=== PATIENT | female | born 1975 | race Caucasian/White ===

== ENCOUNTER 2023-10-05 09:06 | Outpatient (OUT) | payer BC, SELFPAY ==
--- NOTE | 2023-10-05 09:11 | US_ITS ---
The [address] [address] Patient Name: ARACELIS HANDY MRN: [id number] date: 1975 Sex: F Assigned Patient Location: US Current Patient Location: Accession/Order Number: [id number] Exam Date: 10/05/2023 09:15 Report Date: 10/05/2023 09:43 At the request of: SARAH CRANE Procedure: US extremity nonvascular RT EXAM: US extremity nonvascular RT HISTORY: Localized Swelling Mass Of Upper Limb R22.31 COMPARISON: None. TECHNIQUE: Grayscale ultrasound FINDINGS: Ultrasound in the right axilla in the region of the patient's area of concern, normal skin, subcutaneous fat and muscles observed. No ultrasound abnormality. The axilla are bilaterally symmetric US/US extremity nonvascular RT IMPRESSION: No ultrasound abnormality Electronically authenticated by: DANN ARAUJO Date: 10/05/2023 09:43
== END 2023-10-05 09:07 | disposition home or self-care (01) ==
LOC: US 09:06
PROVIDERS: PCP Family Medicine; Visit Provider Family Medicine
DX: R22.31 Localized swelling, mass and lump, right upper limb (principal)
CPT/HCPCS: 76882

== ENCOUNTER 2023-12-30 15:01 | Emergency (ER) | payer BC, SELFPAY ==
[2023-12-30 15:06] VITALS: BP 162/91; PULSE 80; TEMP 37.2; O2SAT 98; BMI 25.8
--- NOTE | 2023-12-30 15:11 | CT_ITS ---
The [address] [address] Patient Name: ARACELIS HANDY MRN: [id number] date: 1975 Sex: F Assigned Patient Location: ER Current Patient Location: ER Accession/Order Number: [id number] Exam Date: 12/30/2023 15:28 Report Date: 12/30/2023 16:04 At the request of: EL GERARDO Procedure: CT head/brain wo con EXAM: CT head/brain wo con HISTORY: Dizziness, headache and left ear pressure. TECHNIQUE: Axial CT scans through the head were obtained without IV contrast administration. Dose reduction techniques were achieved by using: automated exposure control and/or adjustment of mA and /or kV according to patient size and/or the use of an iterative reconstruction technique. COMPARISON: None. FINDINGS: The cerebral hemispheres have normal white and pendleton matter and corticomedullary differentiation. To the limit of CT, the posterior fossa appears unremarkable. The ventricular system and cortical sulci are normal for the patient's age. No area of abnormal mass-effect or edema or intracranial hemorrhage. The visualized orbits show no abnormal mass. The visualized paranasal sinuses show no air-fluid level. Mastoid air cells are clear. CT/CT head/brain wo con IMPRESSION: No acute intracranial process. Electronically authenticated by: YOLIS EDMONDSON Date: 12/30/2023 16:04
--- NOTE | 2023-12-30 15:17 | CT_ITS ---
[address] [address] Patient Name: ARACELIS HANDY MRN: [id number] date: 1975 Sex: F Assigned Patient Location: ER Current Patient Location: Accession/Order Number: [id number] Exam Date: 12/30/2023 15:28 Report Date: 12/30/2023 16:15 At the request of: EL GERARDO Procedure: CT int auditory canals w/o con EXAM: CT int auditory canals w/o con HISTORY: Left ear pain, dizziness and headache. COMPARISON: None. TECHNIQUE: Axial CT scans of the temporal bones were obtained without contrast. MPR images were obtained. Dose reduction techniques were achieved by using: automated exposure control and/or adjustment of mA and /or kV according to patient size and/or use of iterative reconstruction technique. FINDINGS: External auditory canals, middle ear cavities and mastoids are clear bilaterally. The ossicles and otic capsules appear normal bilaterally. The visualized intracranial contents appear normal. CT/CT int auditory canals w/o con IMPRESSION: Normal CT of the temporal bones. Electronically authenticated by: YOLIS EDMONDSON Date: 12/30/2023 16:15
--- OUTSIDE RECORDS SUMMARY | 2023-12-30 15:18 | XMS_ITS | CCD ---
Author Organization [facility] Informat ion Partnership [facility] Care Team Providers Care Accounting Machine Servicer Name Role Phone MEME CARVALHO Attending Unavailable PROVIDER, UNKNOWN Admitting Unavailable PATIENT, SELF Referring Unavailable Janett Cruz Unavailable Unavailable Primary Care Provider Unavailabl e Unavailable Primary Care Provider UnavailSARAH Contreras Primary Care Physician Mark EL Attending Unavailable MYESHA DAVIS Admitting Unavailable CRANE, DR SARAH Draper Primary Care Unavailable MYESHA DAVIS Attending Unavailable SUSAN, MYESHA Consulting Unavailable IAN MANZANARES Consulting Unavailable PRADEEP, DR MARCO Weaver Admitting Unavailable CRANE, DR SARAH Draper Primary Care Unavailable PRADEEP, DR MARCO Weaver Attending Unavailable PRADEEP, DR MARCO Weaver Consulting Unavailable JOSÉ ANTONIO BATEMAN Consulting Unavailable CRANE, DR SARAH Draper Primary Care Unavailable VAUGHN ., DANAE Admitting Unavailable VAUGHN ., DANAE Attending Unavailable VAUGHN ., DANAE Consulting Unavailable CLEMENCIA FONSECA Consulting Unavailable ELOISA WILLETT Consulting Unavailable CRANE, DR SARAH Draper Consulting Unavailable CRANE, DR SARAH Draper Primary Care Unavailable CRANE, DR SARAH Draper Admitting Unavailable CRANE, DR SARAH Draper Attending Unavailable ZIEBER, DR YOAN Weaver Consulting Unavailable CRANE, DR SARAH Draper Consulting Unavailable CRANE, DR SARAH Draper Primary Care Unavailable CRANE, DR SARAH Draper Admitting Unavailable CRANE, DR SARAH Draper Attending Unavailable CRANE, DR SARAH Draper Primary Care Unavailable CRANE, DR SRAAH Draper Admitting Unavailable CRANE, DR SARAH Draper Attending Unavailable CRANE, DR SARAH Draper Primary Care Unavailable ZIEBER, DR YOAN Weaver Consulting Unavailable PAY ., DR KLEIN Admitting Unavailable PAY ., DR KLEIN Attending Unavailable PAY ., DR KLEIN Consulting Unavailable COOK, Scott P Attending Unavailable Scott PERALTA Attending Unavailable ABIGAIL HOLLIS Attending Unavailable Allergies Allergy Classification Reported Allergen(s) Allergy Type Date of Onset Reaction(s) Facility (4 sources) Acetaminophen / HYDROcodone; Translations: [HYDROCODONE-ACETA MINOPHEN] Drug Allergy 4 Itching [facility] Repository (2 sources) Acetaminophen / HYDROcodone; Translations: [Vicodin] Drug Allergy 3 hives [facility] Repository (1 source) Acetaminophen Drug Allergy 4 [facility] (1 source) HYDROcodone Drug Allergy 4 [facility] Medications Current Medications Medication Drug Class(es) Dates Sig (Normalized) Sig (Original) azelastine hydrochloride 0.206 mg/actuat metered dose nasal spray (1 source) Histamine-1 Receptor Antagonist Start: 12-01-2023 Azelastine (Astepro Allergy) 205.5 mcg (0.15 %) spray,non-aerosol Active INTRANASAL December 01, 2023 12:00am brompheniramine maleate 0.4 mg/ml / dextromethorphan hydrobromide 2 mg/ml / pseudoephedrine hydrochloride 6 mg/ml oral solution (1 source) alpha-Adrenergic Agonist, Uncompetitive N-puxeyv-K-aspartat e Receptor Antagonist, Sigma-1 Agonist Start: 08-19-2021 take 10 mL by mouth every six hours Pseudoeph-Bromphen -DM 30-2-10 MG/5ML 10 mL Orally every 6 hours for 5 days Jul, Active 24 hr buPROPion hydrochloride 300 mg extended release oral tablet (3 sources) Aminoketone Start: 09-21-2015 take 1 tablet by mouth once daily buPROPion (WELLBUTRIN XL) 300 MG XL tablet Take 300 mg by mouth daily. 1 09/21/2015 Active DULoxetine 30 mg delayed release oral capsule (1 source) Serotonin and Norepinephrine Reuptake Inhibitor Start: 12-01-2023 Duloxetine Active MG PO December 01, 2023 12:00am famotidine 40 mg oral tablet (1 source) Histamine-2 Receptor Antagonist Start: 12-01-2023 take 40 mg by mouth once daily Famotidine Active 40 MG PO Daily December 01, 2023 12:00am fluticasone propionate 0.05 mg/actuat metered dose nasal spray (1 source) Corticosteroid Start: 08-19-2021 take 2 spray(s) nasal route once daily Flonase Allergy Relief 50 MCG/ACT 2 spray in each nostril Nasally Once a day for 14 day(s) Jul, Active ibuprofen 800 mg oral tablet (3 sources) Nonsteroidal Anti-inflammatory Drug Start: 10-24-2015 take 1 tablet by mouth every eight hours as needed for pain ibuprofen (MOTRIN) 800 MG tablet Take 1 Tablet by mouth every 8 hours as needed for Pain. 30 Tablet 3 10/24/2015 Active levothyroxine sodium 0.137 mg oral tablet (7 sources) l-Thyroxine Start: 12-01-2023 take 137 ug by mouth once daily Levothyroxine Active 137 MCG PO Daily December 01, 2023 12:00am Start: 08-25-2022 levothyroxine 137 mcg (0.137 mg) Tab 137 mcg = 1 tab(s), Daily Start Date: 08/25/22 Status: Ordered Start: 10-16-2015 levothyroxine (SYNTHROID, LEVOTHROID) 137 MCG tablet Levothyroxine So dium 137 MCG Oral for 30 Active methylPREDNISolone 4 mg oral tablet (1 source) Corticosteroid Start: 12-01-2023 take 1 tablet by mouth once Methylprednisolone (Medrol (Samson)) 4 mg tablets,dose pack Active 0 PO per package directions December 01, 2023 12:00am PO PER PKG DIR for 6 days montelukast 10 mg oral tablet (1 source) Leukotriene Receptor Antagonist Start: 12-01-2023 take 10 mg by mouth once daily Montelukast Active 10 MG PO Daily December 01, 2023 12:00am ondansetron 8 mg oral tablet (1 source) Serotonin-3 Receptor Antagonist Start: 12-01-2023 take 8 mg by mouth once daily Ondansetron Hcl Active 8 MG PO Daily December 01, 2023 12:00am phentermine hydrochloride 37.5 mg oral capsule (3 sources) Sympathomimetic Amine Anorectic Phentermine HCl 37.5 MG CAPS Take by mouth. 0 Active Semaglutide (Weight Loss) (1 source) Start: 12-01-2023 Semaglutide (Weight Loss) (Wegovy) 2.4 mg/0.75 mL pen injector Active MG SUBCUT December 01, 2023 12:00am topiramate 50 mg oral tablet (1 source) Start: 12-01-2023 take 50 mg by mouth once daily Topiramate Active 50 MG PO Daily December 01, 2023 12:00am Problems Active Problems Problem Classification Problem Date Documented Da te Episodic/Chronic Abdominal pain (7 sources) Pelvic and perineal pain; Translations: [Unspecified abdominal pain] Onset: 05-27-2022 Episodic Calculus of urinary tract (5 sources) Kidney stone; Translations: [Calculus of kidney] Onset: 05-29-2022 Episodic Genitourinary symptoms and ill-defined conditions (1 source) Retention of urine, unspecified; Translations: [RETENTION OF URINE UNSPECIFIED] Onset: 07-15-2022 Episodic Menopausal disorders (1 source) Hormone replacement therapy; Translations: [HORMONE REPLACEMENT THERAPY] Onset: 07-22-2022 Episodic Other aftercare (1 source) Other prison (current) drug therapy; Translations: [OTH PUBLIC BATH ATTENDANT CURRENT DRUG THERAPY] Onset: 07-22-2022 Episodic Other diseases of kidney and ureters (1 source) Hydronephrosis with renal and ureteral calculous obstruction; Translations: [HYDRONPHROS RENL AND URETRL CALCUL OBST] Onset: 07-15-2022 Episodic Other gastrointestinal disorders (1 source) Constipation, unspecified; Translations: [CONSTIPATION UNSPECIFIED] Onset: 07-22-2022 Episodic Residual codes; unclassified (1 source) Acquired absence of both cervix and uterus; Translations: [ACQUIRED ABSENCE BOTH CERVIX AND UTERUS] Onset: 07-15-2022 Episodic Substance-related disorders (1 source) Nicotine dependence, cigarettes, uncomplicated; Translations: [NICOTINE DEPEND CIGARETTES UNCOMP] Onset: 07-15-2022 Chronic Thyroid disorders (3 sources) Hypothyroidism; Translations: [Hypothyroidism, unspecified] Onset: 07-15-2022 08-25-2022 Chronic Unclassified (3 sources) LOW BACK PAIN, UNSPECIFIED; Translations: [LOW BACK PAIN, UNSPECIFIED] Onset: 07-22-2022 Past or Other Problems Problem Classification Problem Date Documented Date Episodic/Chronic Diabetes mellitus without complication (4 sources) Hyperglycemia, unspecified; Translations: [HYPERGLYCEMIA UNSPECIFIED] Onset: 12-17-2021 Episodic Disorders of teeth and jaw (3 sources) Arthralgia of temporomandibular joint; Translations: [Arthralgia of temporomandibular joint, unspecified side] Onset: 09-26-2013 09-26-2013 Episodic E Codes: Fall (1 source) Fall on same level from slipping, tripping and stumbling without subsequent striking against object, initial encounter; Translations: [FALL SAME LVL SLIP NO STRK OBJ INIT] Onset: 04-23-2022 Episodic Headache; including migraine (1 source) Headache; Translations: [Headache] Episodic Headache; including migraine (1 source) Headache; including migraine Onset: 08-19-2021 Resolved: 08-19-2021 Mycoses (1 source) Onychomycosis; Translations: [Tinea unguium] Episodic Other connective tissue disease (3 sources) Myofascial pain syndrome; Translations: [Myalgia, other site] Onset: 03-16-2014 03-16-2014 Episodic Other ear and sense organ disorders (3 sources) Pain of ear structure; Translations: [Otalgia, unspecified ear] Onset: 09-22-2013 09-22-2013 Episodic Other lower respiratory disease (3 sources) Pleurodynia; Translations: [PLEURODYNIA] Onset: 04-21-2022 Episodic Other screening for suspected conditions (not mental disorders or infectious disease) (4 sources) Other abnormal and inconclusive findings on diagnostic imaging of breast; Translations: [OTH ABN INCONCL FIND DX IMAG BREAST] Onset: 09-06-2021 Episodic Other upper respiratory infections (1 source) Acute sinusitis, unspecified Onset: 08-19-2021 Resolved: 08-19-2021 Episodic Rehabilitation care; fitting of prostheses; and adjustment of devices (3 sources) Patient encounter status; Translations: [Other physical therapy] Onset: 09-26-2013 09-26-2013 Episodic Superficial injury; contusion (2 sources) Contusion of left front wall of thorax, initial encounter; Translations: [Contusion of left hip, initial encounter] Onset: 04-23-2022 Episodic Unclassified (1 source) LOW BACK PAIN, UNSPECIFIED; Translations: [LOW BACK PAIN, UNSPECIFIED] Onset: 07-18-2022 Viral infection (1 source) Other viral agents as the cause of diseases classified elsewhere Onset: 08-19-2021 Resolved: 08-19-2021 Episodic Results Test Name Value Interpretation Reference Range Facility ED Note-Physicianon 09-09-19 ED Note-Physician [id number]#1. 00CD:127 Normal [facility] ED Note-Physician [id number] 0CD:127 Normal [facility] ED Note-Physician [id number]#1. 00CD:127 [facility] RAD - CT Reporton 09-08-2022 RAD - CT Report [id number]#1. 00CD:127 [facility] RAD - CT Report [id number]#1. 00CD:127 Normal [facility] RAD - MISCon 09-08-2022 RAD - MISC [id number]#1. 00CD:127 Normal [facility] RAD - MISCon 09-01-2022 RAD - MISC [id number]#1. 00CD:127 Normal [facility] RAD - Ultrasound Reporton RAD - Ultrasound Report [id number]#1. 00CD:127 Normal [facility] Formson 08-27-2022 Forms [id number]#1. 00CD:127 [facility] Formson 08-26-2022 Forms [id number]#1. 00CD:127 Normal [facility] Patient Educationon 08-26-19 Patient Education Urology Kidney Stones Kidney stones are rock-like masses that form inside of the kidneys. Kidneys are organs that make pee (urine). A kidney stone may move into other parts of the urinary tract, including: ? The tubes that connect the kidneys to the bladder (ureters). ? The bladder. ? The tube that carries urine out of the body (urethra). Kidney stones can cause very bad pain and can block the flow of pee. The stone usually leaves your body (passes) through your pee. You may need to have a doctor take out the stone. What are the causes? Kidney stones may be caused by: ? A condition in which certain glands make too much parathyroid hormone (primary hyperparathyroidism). ? A buildup of a type of crystals in the bladder made of a chemical called uric acid. The body makes uric acid when you eat certain foods. ? Narrowing (stricture) of one or both of the ureters. ? A kidney blockage that you were born with. ? Past surgery on the kidney or the ureters, such as gastric bypass surgery. What increases the risk? You are more likely to develop this condition if: ? You have had a kidney stone in the past. ? You have a family history of kidney stones. ? You do not drink enough water. ? You eat a diet that is high in protein, salt (sodium), or sugar. ? You are overweight or very overweight (obese). What are the signs or symptoms? Symptoms of a kidney stone may include: ? Pain in the side of the belly, right below the ribs (flank pain). Pain usually spreads (radiates) to the groin. ? Needing to pee often or right away (urgently). ? Pain when going pee (urinating). ? Blood in your pee (hematuria). ? Feeling like you may vomit (nauseous). ? Vomiting. ? Fever and chills. How is this treated? Treatment depends on the size, location, and makeup of the kidney stones. The stones will often pass out of the body through peeing. You may need to: ? Drink more fluid to help pass the stone. In some cases, you may be given fluids through an IV tube put into one of your veins at the hospital. ? Take medicine for pain. ? Make changes in your diet to help keep kidney stones from coming back. Sometimes, medical procedures are needed to remove a kidney stone. This may involve: ? A procedure to break up kidney stones using a beam of light (laser) or shock waves. ? Surgery to remove the kidney stones. Follow these instructions at home: Medicines ? Take qmlc-gut-rkoerpi and prescription medicines only as told by your doctor. ? Ask your doctor if the medicine prescribed to you requires you to avoid driving or using heavy machinery. Eating and drinking ? Drink enough fluid to keep your pee pale yellow. You may be told to drink at least 8?10 glasses of water each day. This will help you pass the stone. ? If told by your doctor, change your diet. This may include: ? Limiting how much salt you eat. ? Eating more fruits and vegetables. ? Limiting how much meat, poultry, fish, and eggs you eat. ? Follow instructions from your doctor about eating or drinking restrictions. General instructions ? Collect pee samples as told by your doctor. You may need to collect a pee sample: ? 24 hours after a stone comes out. ? 8?12 weeks after a stone comes out, and every 6?12 months after that. ? Strain your pee every time you pee (urinate), for as long as told. Use the strainer that your doctor recommends. ? Do not throw out the stone. Keep it so that it can be tested by your doctor. ? Keep all follow-up visits as told by your doctor. This is important. You may need follow-up tests. How is this prevented? To prevent another kidney stone: ? Drink enough fluid to keep your pee pale yellow. This is the best way to prevent kidney stones. ? Eat healthy foods. ? Avoid certain foods as told by your doctor. You may be told to eat less protein. ? Stay at a healthy weight. Where to find more information ? National Kidney Foundation (NKF): www.kidney.org ? [employer] (UCF): www.urologyhealth.org Contact a doctor if: ? You have pain that gets worse or does not get better with medicine. Get help right away if: ? You have a fever or chills. ? You get very bad pain. ? You get new pain in your belly (abdomen). ? You pass out (faint). ? You cannot pee. Summary ? Kidney stones are rock-like masses that form inside of the kidneys. ? Kidney stones can cause very bad pain and can block the flow of pee. ? The stones will often pass out of the body through peeing. ? Drink enough fluid to keep your pee pale yellow. This information is not intended to replace advice given to you by your health care provider. Make sure you discuss any questions you have with your health care provider. Document Released: 11/03/2008 Document Revised: 10/04/2019 Document Reviewed: 10/04/2019 Elsevier Patient Education ? 2019 [employer] Lester [employer] [facility] Urology Office/Clinic Noteon 08-25-2022 Urology Office/Clinic Note Chief Complaint New Pt. HPI Staff This is a 47 year old female New Pt. seen in [facility] for bilateral lower back pain on 07/18/22 and on 07/13/22 due to pelvic pain and pressure that radiates to her back. Pt. had kidney US done 07/18/[address] on 07/13/22. Pt. states she did pass the kidney stones from Jul. Pt. states in May she had passed a kidney stone. Dysuria:no Incomplete bladder emptying: no Hematuria: UA shows trace today. Pt. states she may have seen blood in the toilet but not sure if it was from having a BM or from urine. Frequency: occasionally Urgency: Pt. states not now, but last Fri and Sat she was having some urgency. Nocturia: no Stream: good stream Leaking: _ Post void dribbling: no Wearing pads/ Depends: no Urge incontinence: no Stress incontinence: no Incontinence without Sensory Awareness: no Abdominal pain: Pt. states she did have some cramping and sweats but she was having a BM and did not know if the pain and sweats was from having a BM or passing stone. Flank pain: Lt. flank pain on going since about a week an half. History of Present Illness I have reviewed and verified the staff HPI to be accurate for this encounter. Review of Systems PHQ Score Initial Depression Screen Score: 0 ROS - Provider Constitutional: denies weight loss, denies hot flashes. Eyes: denies eye problems. Gastrointestinal: denies nausea, denies vomiting. Cardiovascular: denies chest pain or angina. Integumentary: no dryness Musculoskeletal: denies musculoskeletal symptoms. ENMT: denies otolaryngeal symptoms. Respiratory: no shortness of breath. Heme/Lymph: denies easy bleeding tendency, denies easy bruising tendency. Psychiatric: no confusion, no anxiety. Genitourinary: denies vaginal discharge, denies incontinence, denies dysuria, denies hematuria, denies urinary frequency, denies amenorrhea, denies menorrhagia, denies abnormal bleeding, denies pelvic pain, denies genital sores, and denies decreased libido. Physical Exam Vitals & Measurements HR: 67(Peripheral) RR: 16 BP: 125/83 HT: 66 in HT: 168 cm WT: 92 kg WT: 202.4 lb BMI: 32.6 General Appearance: alert , no acute distress, well nourished, well developed female. Head: normocephalic . Eyes: normal orbit and globe. ENMT: normal examination of external ears. Chest: Lungs CTA, respirations non labored . Cardiovascular: regular rate and rhythm. Abdomen: soft, non distended, no tenderness, no mass or organomegaly, no hernia. Genitourinary: bladder nonpalpable, no flank tenderness. Lymph Nodes: unremarkable palpation of the cervical area. Skin: warm, dry, no bruising. Psychiatric: cooperative, affect appropriate for age, normal judgement, euthymic mood. Assessment/Plan 1. Kidney stones (N20.0: Calculus of kidney) Pt. states she did pass the kidney stones from Jul. COLEMAN done 07/18/2022 showed nonobstructing right nephrolithiasis 4mm CT done 07/14/2022 showed mild right hydronephrosis and hydroureter with 3mm calculus at the distal ureterovesicular junction. Additional nonobstructing right renal calculus measures 3mm. Pt has not had any imaging done since her COLEMAN in July. Pt states that she is having left flank pain. Discussed with her that none of her imaging showed Left sided kidney stones. Educated pt that her pain is most likely musculoskeletal pain. Will order IVP. Will order metabolic work-up since pt has a hx of Kidney stones to see why she is making stones. The summary is the patient was in the ER in July and most likely has passed her 2 to 3 mm right distal ureteral calculus. She states she did pass that stone. She had a subsequent renal ultrasound demonstrating normal ureteral jets into the bladder and no hydronephrosis. The current KUB demonstrates a 2 to 3 mm stone in the lower pole of the right kidney. We did look back and there was no additional stone on the left side either in the kidney or the ureter. This is the side of her current pain. She did however have some possible blood associated within the past couple weeks. I feel that an intravenous pyelogram is indicated and she agrees with the plan. Tentative plan, pending the results of that test, are to proceed with metabolic work-up and blood work prior to her 3-month visit. She knows that she can certainly return to the ER if the pain becomes severe. The possibility certainly exists that her current pain is not urologic. Follow-up With When Contact Information Scott PERALTA MD, URL In 3 months 11/25/[address] [address]- Additional Instructions: IVP, Metabolic work-up Patient Education Kidney Stones, [id number] I, Joanie Mcclendon , personally scribed for Dr. Peralta on 08/25/2022 08:49:01. . Documentation recorded by the scribe, Joanie Mcclendon MA, accurately reflects the services(s) I performed and decisions made by me. Authenticated by Dr. Carrillo (more content not included)... Normal [facility] Comment on above: Result Comment: Elec tronically Signed By: Scott PERALTA MD\.br\Date and Time Signed: 08/25/22 08:58 EDT\.br\Electronically Co-Signed By: Joanie Mcclendon MA\.br\Date and Time Co-Signed: 08/25/22 08:53 EDT\.br\Electronically Co-Signed By: Joanie Mcclendon MA\.br\Date and Time Co-Signed: 08/25/22 08:55 EDT CBC AUTO DIFFon 07-18-2022 BASO # 0.1 103/ul Normal 0.0-0.1 [facility] Comment on above: Performed By: #### C BC #### [facility] [address] [address] [address] Maru Rahman Basophils/100 WBC (Bld) 0.8 % Normal 0.2-2.0 [facility] Comment on above: Performed By: #### C BC #### [facility] [address] [address] [address] Maru Rahman EO # 0.2 103/ul Normal 0.0-0.7 [facility] Comment on above: Performed By: #### C BC #### [facility] [address] [address] [address] Maru Rahman Eosinophils/100 WBC (Bld) 2.6 % Normal 0.9-7.0 [facility] Comment on above: Performed By: #### C BC #### [facility] [address] [place] [address] Dr. Maru Rahman Erythrocyte distribution width (RBC) [Ratio] 17.1 % Critically high 11.0-15.0 [facility] Comment on above: Performed By: #### C BC #### [facility] [address] [place] [address] Dr. Maru Rahman Hematocrit (Bld) [Volume fraction] 40.6 % Normal 36.0-48.0 [facility] Comment on above: Performed By: #### C BC #### [facility] [address] [place] [address] Dr. Maru Rahman Hemoglobin (Bld) [Mass/Vol] 12.4 g/dL Normal 12.0-16.0 [facility] Comment on above: Performed By: #### C BC #### [facility] [address] [place] [address] Dr. Maru Rahman IG # 0.06 10e3/ul Critically high 0.00-0.03 [facility] Comment on above: Performed By: #### C BC #### [facility] [address] [place] [address] Dr. Maru Rahman IG % 1.0 % Critically high 0.0-0.5 [facility] Comment on above: Performed By: #### C BC #### [facility] [address] [place] [address] Dr. Maru Rahman LYMPH # 2.6 103/ul Normal 1.2-3.8 [facility] Comment on above: Performed By: #### C BC #### [facility] [address] [place] [address] Dr. Maru Rahman Lymphocytes/100 WBC (Bld) 41.5 % Normal 20.5-60.0 [facility] Comment on above: Performed By: #### C BC #### [facility] [address] [place] [address] Dr. Maru Rahman MANUAL DIFF REQ NO Normal [facility] Comment on above: Performed By: #### C BC #### [facility] [address] [place] [address] Dr. Maru Rahman MCH (RBC) [Entitic mass] 20.5 pg Critically low 26.7-34.0 [facility] Comment on above: Performed By: #### C BC #### [facility] [address] [place] [address] Dr. Maru Rahman MCHC (RBC) [Mass/Vol] 30.5 g/dL Normal 29.9-35.2 [facility] Comment on above: Performed By: #### C BC #### [facility] [address] [place] [address] Dr. Maru Rahman MCV (RBC) [Entitic vol] 67.2 fL Critically low 81.0-99.0 [facility] Comment on above: Performed By: #### C BC #### [facility] [address] [place] [address] Dr. Maru Rahman MONO # 0.4 103/ul Normal 0.3-0.8 [facility] Comment on above: Performed By: #### C BC #### [facility] [address] [place] [address] Dr. Maru Rahman Monocytes/100 WBC (Bld) 6.3 % Normal 1.7-12.0 [facility] Comment on above: Performed By: #### C BC #### [facility] [address] [place] [address] Dr. Maru Rahman NEUT # 3.0 103/ul Normal 1.4-6.5 [facility] Comment on above: Performed By: #### C BC #### [facility] [address] [place] [address] Dr. Maru Rahman Neutrophils/100 WBC (Bld) 47.8 % Normal 43.0-75.0 [facility] Comment on above: Performed By: #### C BC #### [facility] [address] [place] [address] Dr. Maru Rahman Platelet mean volume (Bld) [Entitic vol] 9.2 fL Critically low 9.5-13.5 [facility] Comment on above: Performed By: #### C BC #### [facility] [address] [place] [address] Dr. Maru Rahman PLT 307 103/ul Normal 150-450 [facility] Comment on above: Performed By: #### C BC #### [facility] [address] [place] [address] Dr. Maru Rahman RBC 6.04 106/ul Critically high 4.20-5.40 [facility] Comment on above: Performed By: #### C BC #### [facility] [address] [place] [address] Dr. Maru Rahman WBC 6.2 103/ul Normal 4.0-11.0 [facility] Comment on above: Performed By: #### C BC #### [facility] [address] [place] [address] Dr. Maru Rahman ER URINE PROFILEon 3 Bilirubin Ql (U) Negative Normal NEGATIVE [facility] Comment on above: Performed By: #### C MP #### [facility] [address] [place] [address] Dr. Maru Rahman Clarity (U) CLEAR Normal CLEAR [facility] Comment on above: Performed By: #### C MP #### [facility] [address] [place] [address] Dr. Maru Rahman Color (U) LT. YELLOW Normal YELLOW [facility] Comment on above: Performed By: #### C MP #### [facility] [address] [place] [address] Dr. Maru Rahman ERUAndrea A micrscopic examination will be performed if indicated. Normal [facility] Comment on above: Performed By: #### C MP #### [facility] [address] [address] [address] Maru Rahman Glucose Ql (U) Negative Normal NEGATIVE [facility] Comment on above: Performed By: #### C MP #### [facility] [address] [place] [address] Dr. Maru Rahman Hemoglobin Ql (U) SMALL Abnormal NEGATIVE [facility] Comment on above: Performed By: #### C MP #### [facility] [address] [address] [address] Maru Rahman Ketones Ql (U) Negative Normal NEGATIVE [facility] Comment on above: Performed By: #### C MP #### [facility] [address] [place] [address] Dr. Maru Rahman LEUKOCYTES Negative Normal NEGATIVE [facility] Comment on above: Performed By: #### C MP #### [facility] [address] [address] [address] Maru Rahman Nitrite Ql (U) Negative Normal NEGATIVE [facility] Comment on above: Performed By: #### C MP #### [facility] [address] [place] [address] Dr. Maru Rahman pH (U) 5.5 [pH] Normal 5-9 [facility] Comment on above: Performed By: #### C MP #### [facility] [address] [place] [address] Dr. Maru Rahman SPEC GRAVITY 1.010 Normal 1.005-<=1.025 [facility] Comment on above: Performed By: #### C MP #### [facility] [address] [place] [address] Dr. Maru Rahman UA PROTEIN Negative Normal NEGATIVE/ TRACE [facility] Comment on above: Performed By: #### C MP #### [facility] [address] [place] [address] Dr. Maru Rahman UR MICRO IND INDICATED Normal [facility] Comment on above: Performed By: #### C MP #### [facility] [address] [place] [address] Dr. Maru Rahman Urobilinogen Qn (U) 0.2 {Namita'U}/dL Normal 0.2 - 1.0 [facility] Comment on above: Performed By: #### C MP #### [facility] [address] [place] [address] Dr. Maru Rahman LIPASEon 07-18-2022 Lipase [Catalytic activity/Vol] 80.0 U/L Normal 73.0-393.0 [facility] Comment on above: Performed By: #### C MP, LIPA #### [facility] [address] [place] [address] Dr. Maru Rahman URon 07-18-2022 , QUAL Negative Normal NEGATIVE [facility] Comment on above: Performed By: #### C MP #### [facility] [address] [place] [address] Dr. Maru Rahman PROF 14(COMP METB)on 023 Albumin [Mass/Vol] 4.1 g/dL Normal 3.4-5.0 [facility] Comment on above: Performed By: #### C MP, LIPA #### [facility] [address] [place] [address] Dr. Maru Rahman Albumin/Globulin [Mass ratio] 1.3 {ratio} Normal [facility] Comment on above: Performed By: #### C MP, LIPA #### [facility] [address] [place] [address] Dr. Maru Rahman ALP [Catalytic activity/Vol] 93 U/L Normal 46-116 [facility] Comment on above: Performed By: #### C MP, LIPA #### [facility] [address] [place] [address] Dr. Maru Rahman ALT [Catalytic activity/Vol] 41 U/L Normal 14-59 [facility] Comment on above: Performed By: #### C MP, LIPA #### [facility] [address] [place] [address] Dr. Maru Rahman Anion gap [Moles/Vol] 14.2 mmol/L Normal [facility] Comment on above: Performed By: #### C MP, LIPA #### [facility] [address] [address] [address] Maru Rahman AST [Catalytic activity/Vol] 25 U/L Normal 15-37 [facility] Comment on above: Performed By: #### C MP, LIPA #### [facility] [address] [place] [address] Dr. Maru Rahman Bilirubin [Mass/Vol] 0.5 mg/dL Normal 0.2-1.0 [facility] Comment on above: Performed By: #### C MP, LIPA #### [facility] [address] [address] [address] Maru Rahman Calcium [Mass/Vol] 8.7 mg/dL Normal 8.5-10.1 [facility] Comment on above: Performed By: #### C MP, LIPA #### [facility] [address] [place] [address] Dr. Maru Rahman Chloride [Moles/Vol] 101 mmol/L Normal 98-107 [facility] Comment on above: Performed By: #### C MP, LIPA #### [facility] [address] [address] [address] Maru Rahman CO2 [Moles/Vol] 26.1 mmol/L Normal 21.0-32.0 [facility] Comment on above: Performed By: #### C MP, LIPA #### [facility] [address] [place] [address] Dr. Maru Rahman Creatinine [Mass/Vol] 0.87 mg/dL Normal 0.55-1.02 [facility] Comment on above: Performed By: #### C MP, LIPA #### [facility] [address] [place] [address] Dr. Maru Rahman EGFR-AF HUNGARIAN >60 Normal >=60 [facility] Comment on above: Performed By: #### C MP, LIPA #### [facility] [address] [place] [address] Dr. Maru Rahman EGFR-NON AF HUNGARIAN >60 Normal >=60 [facility] Comment on above: Performed By: #### C MP, LIPA #### [facility] [address] [address] [address] Maru Rahman Globulin (S) [Mass/Vol] 3.2 g/dL Normal [facility] Comment on above: Performed By: #### C MP, LIPA #### [facility] [address] [address] [address] Maru Rahman Glucose [Mass/Vol] 122 mg/dL Critically high 74-106 [facility] Comment on above: Performed By: #### C MP, LIPA #### [facility] [address] [address] [address] Maru Rahman Potassium [Moles/Vol] 4.3 mmol/L Normal 3.5-5.1 [facility] Comment on above: Performed By: #### C MP, LIPA #### [facility] [address] [place] [address] Dr. Maru Rahman Protein [Mass/Vol] 7.3 g/dL Normal 6.4-8.2 [facility] Comment on above: Performed By: #### C MP, LIPA #### [facility] [address] [place] [address] Dr. Maru Rahman Sodium [Moles/Vol] 137 mmol/L Normal 136-145 [facility] Comment on above: Performed By: #### C MP, LIPA #### [facility] [address] [address] [address] Maru Rahman Urea nitrogen [Mass/Vol] 19.0 mg/dL Critically high 7.0-18.0 [facility] Comment on above: Performed By: #### C MP, LIPA #### [facility] [address] [place] [address] Dr. Maru Rahman Urea nitrogen/Creatini ne [Mass ratio] 21.8 mg/mg Normal [facility] Comment on above: Performed By: #### C MP, LIPA #### [facility] [address] [place] [address] Dr. Maru Rahman URINE MICROSCOPIC ONLYon BACTERIA NONE SEEN Normal NONE SEEN [facility] Comment on above: Performed By: #### C MP #### [facility] [address] [place] [address] Dr. Maru Rahman Bacteria identified Cx Nom (U) NOT INDICATED Normal [facility] Comment on above: Performed By: #### C MP #### [facility] [address] [place] [address] Dr. Maru Rahman CAST NONE SEEN Normal NONE SEEN [facility] Comment on above: Performed By: #### C MP #### [facility] [address] [place] [address] Dr. Maru Rahman Crystals LM Nom (Urine sed) NONE SEEN Normal NONE SEEN [facility] Comment on above: Performed By: #### C MP #### [facility] [address] [place] [address] Dr. Maru Rahman Epithelial cells LM Ql (Urine sed) FEW Abnormal NONE SEEN /RARE [facility] Comment on above: Performed By: #### C MP #### [facility] [address] [place] [address] Dr. Maru Rahman MUCOUS NONE SEEN Normal NONE SEEN [facility] Comment on above: Performed By: #### C MP #### [facility] [address] [place] [address] Dr. Maru Rahman RBC 0-2 Normal 0-2 [facility] Comment on above: Performed By: #### C MP #### [facility] [address] [place] [address] Dr. Maru Rahman WBC NONE SEEN Normal NONE SEEN [facility] Comment on above: Performed By: #### C MP #### [facility] [address] [place] [address] Dr. Maru Rahman US KIDNEYSon 07-18-2022 US KIDNEYS EXAMINATION: US KIDNEYS HISTORY: Pain ; bilateral flank pain, nausea, hematuria COMPARISON: CT abdomen pelvis 07/14/2022 TECHNIQUE: Ultrasound examination was performed of the kidneys and urinary bladder. FINDINGS: RIGHT KIDNEY: Contains a nonobstructing 4 mm stone. No hydronephrosis or mass. Carotid Doppler demonstrates blood flow within the kidney. Kidney: 9.8 x 5.1 x 5.0 cm LEFT KIDNEY: No evidence of pelvocaliectasis, mass, or calculi. Normal renal cortical parenchymal echogenicity. Color Doppler demonstrates blood flow within the kidney. Kidney: 9.5 x 5.0 x 5.4 cm BLADDER: No visible wall thickening, mass, or calculi. URETERAL JETS: Visualized bilaterally. IMPRESSION: 1. Nonobstructing right nephrolithiasis. 2. No hydronephrosis. Bilateral ureteral jets are seen within the bladder. Electronically authenticated by: YOAN YEE Date: 2022-07-18 12:47 Normal [facility] CBC AUTO DIFFon 07-14-2022 BASO # 0.0 103/ul Normal 0.0-0.1 [facility] Comment on above: Performed By: #### C MP #### [facility] [address] [address] [address] Maru Rahman Basophils/100 WBC (Bld) 0.3 % Normal 0.2-2.0 [facility] Comment on above: Performed By: #### C MP #### [facility] [address] [address] [address] Maru Rahman EO # 0.1 103/ul Normal 0.0-0.7 [facility] Comment on above: Performed By: #### C MP #### [facility] [address] [address] [address] Maru Rahman Eosinophils/100 WBC (Bld) 0.7 % Critically low 0.9-7.0 [facility] Comment on above: Performed By: #### C MP #### [facility] [address] [place] [address] Dr. Maru Rahman Erythrocyte distribution width (RBC) [Ratio] 15.3 % Critically high 11.0-15.0 [facility] Comment on above: Performed By: #### C MP #### [facility] [address] [place] [address] Dr. Maru Rahman Hematocrit (Bld) [Volume fraction] 32.9 % Critically low 36.0-48.0 [facility] Comment on above: Performed By: #### C MP #### [facility] [address] [address] [address] Maru Rahman Hemoglobin (Bld) [Mass/Vol] 10.2 g/dL Critically low 12.0-16.0 [facility] Comment on above: Performed By: #### C MP #### [facility] [address] [address] [address] Maru Rahman IG # 0.07 10e3/ul Critically high 0.00-0.03 [facility] Comment on above: Performed By: #### C MP #### [facility] [address] [address] [address] Maru Rahman IG % 0.6 % Critically high 0.0-0.5 [facility] Comment on above: Performed By: #### C MP #### [facility] [address] [address] [address] Maru Rahman LYMPH # 2.2 103/ul Normal 1.2-3.8 [facility] Comment on above: Performed By: #### C MP #### [facility] [address] [address] [address] Maru Rahman Lymphocytes/100 WBC (Bld) 19.3 % Critically low 20.5-60.0 [facility] Comment on above: Performed By: #### C MP #### [facility] [address] [place] [address] Dr. Maru Rahman MANUAL DIFF REQ NO Normal [facility] Comment on above: Performed By: #### C MP #### [facility] [address] [address] [address] Maru Rahman MCH (RBC) [Entitic mass] 20.4 pg Critically low 26.7-34.0 [facility] Comment on above: Performed By: #### C MP #### [facility] [address] [address] [address] Maru Rahman MCHC (RBC) [Mass/Vol] 31.0 g/dL Normal 29.9-35.2 [facility] Comment on above: Performed By: #### C MP #### [facility] [address] [address] [address] Maru Rahman MCV (RBC) [Entitic vol] 65.7 fL Critically low 81.0-99.0 [facility] Comment on above: Performed By: #### C MP #### [facility] [address] [address] [address] Maru Rahman MONO # 0.5 103/ul Normal 0.3-0.8 [facility] Comment on above: Performed By: #### C MP #### [facility] [address] [place] [address] Dr. Maru Rahman Monocytes/100 WBC (Bld) 4.3 % Normal 1.7-12.0 [facility] Comment on above: Performed By: #### C MP #### [facility] [address] [place] [address] Dr. Maru Rahman NEUT # 8.7 103/ul Critically high 1.4-6.5 [facility] Comment on above: Performed By: #### C MP #### [facility] [address] [place] [address] Dr. Maru Rahman Neutrophils/100 WBC (Bld) 74.8 % Normal 43.0-75.0 [facility] Comment on above: Performed By: #### C MP #### [facility] [address] [place] [address] Dr. Maru Rahman Platelet mean volume (Bld) [Entitic vol] 9.3 fL Critically low 9.5-13.5 [facility] Comment on above: Performed By: #### C MP #### [facility] [address] [place] [address] Dr. Maru Rahman PLT 282 103/ul Normal 150-450 [facility] Comment on above: Performed By: #### C MP #### [facility] [address] [place] [address] Dr. Maru Rahman RBC 5.01 106/ul Normal 4.20-5.40 [facility] Comment on above: Performed By: #### C MP #### [facility] [address] [place] [address] Dr. Maru Rahman WBC 11.6 103/ul Critically high 4.0-11.0 [facility] Comment on above: Performed By: #### C MP #### [facility] [address] [address] [address] ABD/PELVIS WO CONon 07-14 CT ABD/PELVIS WO CON CT ABD/PELVIS WO CON: 07/14/2022 12:41 AM EST CLINICAL HISTORY: 47 years old Female with lower abdominal pain and pelvic pressure with urinary retention. TECHNIQUE: Axial CT images through the abdomen and pelvis are obtained without the intravenous administration of contrast. Coronal and sagittal reformations are also obtained. Dose reduction techniques were achieved by using automated exposure control and/or adjustment of mA and/or kV according to patient size and/or use of iterative reconstruction technique. COMPARISON: CT abdomen pelvis 05/27/2022. FINDINGS: The lung bases are clear with no dependent infiltrate or effusion. Without the use of IV or oral contrast the study is limited by incomplete evaluation of the blood vessels, solid visceral organs and bowel. The liver, gallbladder, spleen, pancreas and bilateral adrenal glands are unremarkable. Nonobstructing right renal calculus measures 3 mm. Mild right hydronephrosis and hydroureter with 3 mm ureteral calculus at the distal ureterovesicular junction. No left renal or ureteral calculi and no hydronephrosis. The stomach and small bowel are unremarkable. The appendix is present without inflammatory change. The colon is unremarkable. The bladder appears unremarkable. There is no evidence of aortic aneurysm. No enlarged lymph nodes are seen. No free air or free fluid is seen. Uterus is surgically absent. Vacuum disc phenomenon and large posterior disc osteophyte L5-S1. No acute compression fracture deformity or suspicious osseous abnormality. IMPRESSION: 1. Mild right hydronephrosis and hydroureter with 3 mm calculus at the distal ureterovesicular junction. 2. Additional nonobstructing right renal calculus measures 3 mm. Electronically authenticated by: ELOISA WILLETT Date: 2022-07-14 01:12 Normal [facility] ER URINE PROFILEon 3 Bilirubin Ql (U) Negative Normal NEGATIVE [facility] Comment on above: Performed By: #### E RUR #### [facility] [address] [address] [address] Maru Rahman Clarity (U) CLEAR Normal CLEAR [facility] Comment on above: Performed By: #### E RUR #### [facility] [address] [place] [address] Dr. Maru Rahman Color (U) LT. YELLOW Normal YELLOW [facility] Comment on above: Performed By: #### E RUR #### [facility] [address] [place] [address] Dr. Maru Rahman ERUAHD A micrscopic examination will be performed if indicated. Normal [facility] Comment on above: Performed By: #### E RUR #### [facility] [address] [place] [address] Dr. Maru Rahman Glucose Ql (U) Negative Normal NEGATIVE [facility] Comment on above: Performed By: #### E RUR #### [facility] [address] [place] [address] Dr. Maru Rahman Hemoglobin Ql (U) SMALL Abnormal NEGATIVE [facility] Comment on above: Performed By: #### E RUR #### [facility] [address] [place] [address] Dr. Maru Rahman Ketones Ql (U) Negative Normal NEGATIVE [facility] Comment on above: Performed By: #### E RUR #### [facility] [address] [place] [address] Dr. Maru Rahman LEUKOCYTES Negative Normal NEGATIVE [facility] Comment on above: Performed By: #### E RUR #### [facility] [address] [place] [address] Dr. Maru Rahman Nitrite Ql (U) Negative Normal NEGATIVE [facility] Comment on above: Performed By: #### E RUR #### [facility] [address] [place] [address] Dr. Maru Rahman pH (U) 8.5 [pH] Normal 5-9 [facility] Comment on above: Performed By: #### E RUR #### [facility] [address] [place] [address] Dr. Maru Rahman SPEC GRAVITY 1.010 Normal 1.005-<=1.025 [facility] Comment on above: Performed By: #### E RUR #### [facility] [address] [place] [address] Dr. Maru Rahman UA PROTEIN TRACE Normal NEGATIVE/ TRACE [facility] Comment on above: Performed By: #### E RUR #### [facility] [address] [place] [address] Dr. Maru Rahman UR MICRO IND NOT INDICATED Normal [facility] Comment on above: Performed By: #### E RUR #### [facility] [address] [place] [address] Dr. Maru Rahman Urobilinogen Qn (U) 0.2 {Namita'U}/dL Normal 0.2 - 1.0 [facility] Comment on above: Performed By: #### E RUR #### [facility] [address] [place] [address] Dr. Maru Rahman URon 07-14-2022 , QUAL Negative Normal NEGATIVE [facility] Comment on above: Performed By: #### P REGU #### [facility] [address] [place] [address] Dr. Maru Rahman PROF 14(COMP METB)on 023 Albumin [Mass/Vol] 4.0 g/dL Normal 3.4-5.0 [facility] Comment on above: Performed By: #### C MP #### [facility] [address] [place] [address] Dr. Maru Rahman Albumin/Globulin [Mass ratio] 1.4 {ratio} Normal [facility] Comment on above: Performed By: #### C MP #### [facility] [address] [place] [address] Dr. Maru Rahman ALP [Catalytic activity/Vol] 85 U/L Normal 46-116 [facility] Comment on above: Performed By: #### C MP #### [facility] [address] [place] [address] Dr. Maru Rahman ALT [Catalytic activity/Vol] 35 U/L Normal 14-59 [facility] Comment on above: Performed By: #### C MP #### [facility] [address] [address] [address] Maru Rahman Anion gap [Moles/Vol] 13.1 mmol/L Normal [facility] Comment on above: Performed By: #### C MP #### [facility] [address] [address] [address] Maru Rahman AST [Catalytic activity/Vol] 18 U/L Normal 15-37 [facility] Comment on above: Performed By: #### C MP #### [facility] [address] [address] [address] Maru Rahman Bilirubin [Mass/Vol] 0.4 mg/dL Normal 0.2-1.0 [facility] Comment on above: Performed By: #### C MP #### [facility] [address] [place] [address] Dr. Maru Rahman Calcium [Mass/Vol] 9.2 mg/dL Normal 8.5-10.1 [facility] Comment on above: Performed By: #### C MP #### [facility] [address] [address] [address] Maru Rahman Chloride [Moles/Vol] 103 mmol/L Normal 98-107 [facility] Comment on above: Performed By: #### C MP #### [facility] [address] [place] [address] Dr. Maru Rahman CO2 [Moles/Vol] 27.1 mmol/L Normal 21.0-32.0 [facility] Comment on above: Performed By: #### C MP #### [facility] [address] [address] [address] Maru Rahman Creatinine [Mass/Vol] 0.83 mg/dL Normal 0.55-1.02 [facility] Comment on above: Performed By: #### C MP #### [facility] [address] [address] [address] Maru Rahman EGFR-AF HUNGARIAN >60 Normal >=60 [facility] Comment on above: Performed By: #### C MP #### [facility] [address] [place] [address] Dr. Maru Rahman EGFR-NON AF HUNGARIAN >60 Normal >=60 [facility] Comment on above: Performed By: #### C MP #### [facility] [address] [place] [address] Dr. Maru Rahman Globulin (S) [Mass/Vol] 2.8 g/dL Normal [facility] Comment on above: Performed By: #### C MP #### [facility] [address] [address] [address] Maru Rahman Glucose [Mass/Vol] 140 mg/dL Critically high 74-106 [facility] Comment on above: Performed By: #### C MP #### [facility] [address] [place] [address] Dr. Maru Rahman Potassium [Moles/Vol] 4.2 mmol/L Normal 3.5-5.1 [facility] Comment on above: Performed By: #### C MP #### [facility] [address] [place] [address] Dr. Maru Rahman Protein [Mass/Vol] 6.8 g/dL Normal 6.4-8.2 [facility] Comment on above: Performed By: #### C MP #### [facility] [address] [place] [address] Dr. Maru Rahman Sodium [Moles/Vol] 139 mmol/L Normal 136-145 [facility] Comment on above: Performed By: #### C MP #### [facility] [address] [place] [address] Dr. Maru Rahman Urea nitrogen [Mass/Vol] 14.0 mg/dL Normal 7.0-18.0 [facility] Comment on above: Performed By: #### C MP #### [facility] [address] [place] [address] Dr. Maru Rahman Urea nitrogen/Creatini ne [Mass ratio] 16.9 mg/mg Normal [facility] Comment on above: Performed By: #### C MP #### [facility] [address] [place] [address] Dr. Maru Rahman XR ABD FLAT UP_PA Amilcar 07-14 XR ABD FLAT UP_PA CH EXAMINATION: XR ABD FLAT UP_PA CH, 07/13/2022 11:01 PM EST HISTORY:Pain COMPARISON:04/21/2022 chest x-ray/rib series TECHNIQUE:3 views of the chest and abdomen are submitted. FINDINGS: No abnormally dilated loops of bowel are identified. No obvious free air or pneumatosis are present. Is a tiny 2 mm size calculus overlying the right kidney. There is a moderate to large stool burden. The cardiomediastinal silhouette is not enlarged. The pulmonary vascularity is within normal limits. The lungs are clear based on chest radiography. There is no costophrenic angle blunting. IMPRESSION: Unremarkable plain film examination of the chest. Tiny calcification overlying the right kidney. Unremarkable plain film examination otherwise. Electronically authenticated by: CLEMENCIA FONSECA Date: 2022-07-14 00:05 Normal [facility] CBC AUTO DIFFon 05-27-2022 BASO # 0.0 103/ul Normal 0.0-0.1 [facility] Comment on above: Performed By: #### C BC #### [facility] [address] [place] [address] Dr. Maru Rahman Basophils/100 WBC (Bld) 0.5 % Normal 0.2-2.0 [facility] Comment on above: Performed By: #### C BC #### [facility] [address] [place] [address] Dr. Maru Rahman EO # 0.1 103/ul Normal 0.0-0.7 [facility] Comment on above: Performed By: #### C BC #### [facility] [address] [place] [address] Dr. Maru Rahman Eosinophils/100 WBC (Bld) 1.5 % Normal 0.9-7.0 [facility] Comment on above: Performed By: #### C BC #### [facility] [address] [place] [address] Dr. Maru Rahman Erythrocyte distribution width (RBC) [Ratio] 15.6 % Critically high 11.0-15.0 [facility] Comment on above: Performed By: #### C BC #### [facility] [address] [address] [address] Maru Rahman Hematocrit (Bld) [Volume fraction] 38.7 % Normal 36.0-48.0 [facility] Comment on above: Performed By: #### C BC #### [facility] [address] [address] [address] Maru Rahman Hemoglobin (Bld) [Mass/Vol] 11.9 g/dL Critically low 12.0-16.0 [facility] Comment on above: Performed By: #### C BC #### [facility] [address] [address] [address] Maru Rahman IG # 0.07 10e3/ul Critically high 0.00-0.03 [facility] Comment on above: Performed By: #### C BC #### [facility] [address] [place] [address] Dr. Maru Rahman IG % 0.9 % Critically high 0.0-0.5 [facility] Comment on above: Performed By: #### C BC #### [facility] [address] [place] [address] Dr. Maru Rahman LYMPH # 3.3 103/ul Normal 1.2-3.8 [facility] Comment on above: Performed By: #### C BC #### [facility] [address] [place] [address] Dr. Maru Rahman Lymphocytes/100 WBC (Bld) 41.7 % Normal 20.5-60.0 [facility] Comment on above: Performed By: #### C BC #### [facility] [address] [place] [address] Dr. Maru Ramhan MANUAL DIFF REQ NO Normal [facility] Comment on above: Performed By: #### C BC #### [facility] [address] [place] [address] Dr. Maru Rahman MCH (RBC) [Entitic mass] 20.7 pg Critically low 26.7-34.0 [facility] Comment on above: Performed By: #### C BC #### [facility] [address] [place] [address] Dr. Maru Rahman MCHC (RBC) [Mass/Vol] 30.7 g/dL Normal 29.9-35.2 [facility] Comment on above: Performed By: #### C BC #### [facility] [address] [address] [address] Maru Rahman MCV (RBC) [Entitic vol] 67.2 fL Critically low 81.0-99.0 [facility] Comment on above: Performed By: #### C BC #### [facility] [address] [address] [address] Maru Rahman MONO # 0.4 103/ul Normal 0.3-0.8 [facility] Comment on above: Performed By: #### C BC #### [facility] [address] [address] [address] Maru Rahman Monocytes/100 WBC (Bld) 5.5 % Normal 1.7-12.0 [facility] Comment on above: Performed By: #### C BC #### [facility] [address] [address] [address] Maru Rahman NEUT # 4.0 103/ul Normal 1.4-6.5 [facility] Comment on above: Performed By: #### C BC #### [facility] [address] [place] [address] Dr. Maru Rahman Neutrophils/100 WBC (Bld) 49.9 % Normal 43.0-75.0 [facility] Comment on above: Performed By: #### C BC #### [facility] [address] [address] [address] Maru Rahman Platelet mean volume (Bld) [Entitic vol] 9.1 fL Critically low 9.5-13.5 [facility] Comment on above: Performed By: #### C BC #### [facility] [address] [place] [address] Dr. Maru Rahman PLT 321 103/ul Normal 150-450 [facility] Comment on above: Performed By: #### C BC #### [facility] [address] [address] [address] Maru Rahman RBC 5.76 106/ul Critically high 4.20-5.40 [facility] Comment on above: Performed By: #### C BC #### [facility] [address] [place] [address] Dr. Maru Rahman WBC 8.0 103/ul Normal 4.0-11.0 [facility] Comment on above: Performed By: #### C BC #### [facility] [address] [place] [address] ABD/PELVIS WO CONon 05-27 CT ABD/PELVIS WO CON EXAM: CT ABD/PELVIS WO CON 05/27/2022 2:44 AM EST OH001 CLINICAL STATEMENT: CALCULUS OF KIDNEY COMPARISON: No prior studies are available at the time of dictation. TECHNIQUE: Helically acquired images were obtained of the abdomen and pelvis without IV contrast. No oral contrast was administered. AEC is utilized. 2-D reconstructed images are provided. FINDINGS: There is a 6 mm nonobstructive right renal calculus. There is no hydronephrosis or hydroureter. The gallbladder is unremarkable. The upper abdominal solid organs are unremarkable. There is no bowel obstruction or free air. There is no ascites. There is no evidence of aortic aneurysm. Atherosclerotic aorta. There is no retroperitoneal adenopathy. There is no appendicitis. Sigmoid diverticulosis without acute diverticulitis. There are no pelvic masses or loculated fluid collections. The lung bases are clear. Multilevel degenerative changes of the lumbosacral spine. There are no destructive bone lesions identified. IMPRESSION: 6 mm nonobstructive right renal calculus. No hydronephrosis or hydroureter. Sigmoid diverticulosis without acute diverticulitis. FOLLOW-UP: Follow-up as clinically indicated. Electronically authenticated by: JOSÉ ANTONIO SAID Date: 2022-05-27 05:31 Normal [facility] ER URINE PROFILEon 2 Bilirubin Ql (U) Negative Normal NEGATIVE [facility] Comment on above: Performed By: #### C MP #### [facility] [address] [place] [address] Dr. Maru Rahman Clarity (U) CLEAR Normal CLEAR [facility] Comment on above: Performed By: #### C MP #### [facility] [address] [place] [address] Dr. Maru Rahman Color (U) LT. YELLOW Normal YELLOW [facility] Comment on above: Performed By: #### C MP #### [facility] [address] [place] [address] Dr. Maru FORREST A micrscopic examination will be performed if indicated. Normal [facility] Comment on above: Performed By: #### C MP #### [facility] [address] [place] [address] Dr. Maru Rahman Glucose Ql (U) Negative Normal NEGATIVE [facility] Comment on above: Performed By: #### C MP #### [facility] [address] [place] [address] Dr. Maru Rahman Hemoglobin Ql (U) SMALL Abnormal NEGATIVE [facility] Comment on above: Performed By: #### C MP #### [facility] [address] [place] [address] Dr. Maru Rahman Ketones Ql (U) Negative Normal NEGATIVE [facility] Comment on above: Performed By: #### C MP #### [facility] [address] [place] [address] Dr. Maru Rahman LEUKOCYTES Negative Normal NEGATIVE [facility] Comment on above: Performed By: #### C MP #### [facility] [address] [place] [address] Dr. Maru Rahman Nitrite Ql (U) Negative Normal NEGATIVE [facility] Comment on above: Performed By: #### C MP #### [facility] [address] [place] [address] Dr. Maru Rahman pH (U) 6.0 [pH] Normal 5-9 [facility] Comment on above: Performed By: #### C MP #### [facility] [address] [place] [address] Dr. Maru Rahman SPEC GRAVITY <=1.005 Abnormal 1.005-<=1.025 [facility] Comment on above: Performed By: #### C MP #### [facility] [address] [place] [address] Dr. Maru Rahman UA PROTEIN Negative Normal NEGATIVE/ TRACE [facility] Comment on above: Performed By: #### C MP #### [facility] [address] [place] [address] Dr. Maru Rahman UR MICRO IND INDICATED Normal [facility] Comment on above: Performed By: #### C MP #### [facility] [address] [place] [address] Dr. Maru Rahman Urobilinogen Qn (U) 0.2 {Namita'U}/dL Normal 0.2 - 1.0 [facility] Comment on above: Performed By: #### C MP #### [facility] [address] [place] [address] Dr. Maru Rahman PROF 14(COMP METB)on 022 Albumin [Mass/Vol] 4.3 g/dL Normal 3.4-5.0 [facility] Comment on above: Performed By: #### C MP #### [facility] [address] [place] [address] Dr. Maru Rahman Albumin/Globulin [Mass ratio] 1.3 {ratio} Normal [facility] Comment on above: Performed By: #### C MP #### [facility] [address] [place] [address] Dr. Maru Rahman ALP [Catalytic activity/Vol] 100 U/L Normal 46-116 [facility] Comment on above: Performed By: #### C MP #### [facility] [address] [place] [address] Dr. Maru Rahman ALT [Catalytic activity/Vol] 34 U/L Normal 14-59 [facility] Comment on above: Performed By: #### C MP #### [facility] [address] [place] [address] Dr. Maru Rahman Anion gap [Moles/Vol] 11.8 mmol/L Normal [facility] Comment on above: Performed By: #### C MP #### [facility] [address] [place] [address] Dr. Maru Rahman AST [Catalytic activity/Vol] 18 U/L Normal 15-37 [facility] Comment on above: Performed By: #### C MP #### [facility] [address] [address] [address] Maru Rahman Bilirubin [Mass/Vol] 0.7 mg/dL Normal 0.2-1.0 [facility] Comment on above: Performed By: #### C MP #### [facility] [address] [address] [address] Maru Rahman Calcium [Mass/Vol] 9.1 mg/dL Normal 8.5-10.1 [facility] Comment on above: Performed By: #### C MP #### [facility] [address] [address] [address] Maru Rahman Chloride [Moles/Vol] 100 mmol/L Normal 98-107 [facility] Comment on above: Performed By: #### C MP #### [facility] [address] [address] [address] Maru Rahman CO2 [Moles/Vol] 27.0 mmol/L Normal 21.0-32.0 [facility] Comment on above: Performed By: #### C MP #### [facility] [address] [address] [address] Maru Rahman Creatinine [Mass/Vol] 0.89 mg/dL Normal 0.55-1.02 [facility] Comment on above: Performed By: #### C MP #### [facility] [address] [address] [address] Maru Rahman EGFR-AF HUNGARIAN >60 Normal >=60 [facility] Comment on above: Performed By: #### C MP #### [facility] [address] [address] [address] Maru Rahman EGFR-NON AF HUNGARIAN >60 Normal >=60 [facility] Comment on above: Performed By: #### C MP #### [facility] [address] [address] [address] Maru Rahman Globulin (S) [Mass/Vol] 3.2 g/dL Normal [facility] Comment on above: Performed By: #### C MP #### [facility] [address] [address] [address] Maru Rahman Glucose [Mass/Vol] 99 mg/dL Normal 74-106 [facility] Comment on above: Performed By: #### C MP #### [facility] [address] [place] [address] Dr. Maru Rahman Potassium [Moles/Vol] 3.8 mmol/L Normal 3.5-5.1 [facility] Comment on above: Performed By: #### C MP #### [facility] [address] [place] [address] Dr. Maru Rahman Protein [Mass/Vol] 7.5 g/dL Normal 6.4-8.2 [facility] Comment on above: Performed By: #### C MP #### [facility] [address] [place] [address] Dr. Maru Rahman Sodium [Moles/Vol] 135 mmol/L Critically low 136-145 [facility] Comment on above: Performed By: #### C MP #### [facility] [address] [place] [address] Dr. Maru Rahman Urea nitrogen [Mass/Vol] 10.0 mg/dL Normal 7.0-18.0 [facility] Comment on above: Performed By: #### C MP #### [facility] [address] [place] [address] Dr. Maru Rahman Urea nitrogen/Creatini ne [Mass ratio] 11.2 mg/mg Normal [facility] Comment on above: Performed By: #### C MP #### [facility] [address] [place] [address] Dr. Maru Rahman URINE MICROSCOPIC ONLYon BACTERIA NONE SEEN Normal NONE SEEN [facility] Comment on above: Performed By: #### C MP #### [facility] [address] [place] [address] Dr. Maru Rahman Bacteria identified Cx Nom (U) NOT INDICATED Normal [facility] Comment on above: Performed By: #### C MP #### [facility] [address] [place] [address] Dr. Maru Rahman CAST NONE SEEN Normal NONE SEEN [facility] Comment on above: Performed By: #### C MP #### [facility] [address] [address] [address] Maru Rahman Crystals LM Nom (Urine sed) NONE SEEN Normal NONE SEEN [facility] Comment on above: Performed By: #### C MP #### [facility] [address] [address] [address] Maru Rahman Epithelial cells LM Ql (Urine sed) RARE Normal NONE SEEN /RARE [facility] Comment on above: Performed By: #### C MP #### [facility] [address] [address] [address] Maru Rahman MUCOUS TRACE Abnormal NONE SEEN [facility] Comment on above: Performed By: #### C MP #### [facility] [address] [place] [address] Dr. Maru Rahman RBC 0-2 Normal 0-2 [facility] Comment on above: Performed By: #### C MP #### [facility] [address] [place] [address] Dr. Maru Rahman WBC NONE SEEN Normal NONE SEEN [facility] Comment on above: Performed By: #### C MP #### [facility] [address] [place] [address] Dr. Maru Rahman XR HIP LT 2 3V W PELVISon XR HIP LT 2 3V W PELVIS EXAM: XR HIP LT 2 3V W PELVIS HISTORY: Pain COMPARISON: None. TECHNIQUE: 3 views of the left hip FINDINGS: No acute fracture is seen. Joint alignment is normal. Joint spaces are preserved. Soft tissues appear unremarkable. IMPRESSION: No acute fracture or malalignment. Electronically authenticated by: IAN MANZANARES Date: 2022-04-21 22:23 Normal [facility] XR RIBS LT PA Amilcar 2 XR RIBS LT PA CH EXAM: XR RIBS LT PA CH HISTORY: Pain COMPARISON: None. TECHNIQUE: Single view of the chest as well as 6 additional views of the left ribs FINDINGS: No pneumothorax, pleural effusion or focal airspace consolidation. Heart is normal in size. No definite acute displaced left rib fracture is seen. IMPRESSION: No radiographic evidence for acute cardiopulmonary disease. No definite acute displaced left rib fracture is seen. Electronically authenticated by: IAN MANZANARES Date: 2022-04-21 22:31 Normal [facility] ER URINE PROFILEon 2 Bilirubin Ql (U) Negative Normal NEGATIVE [facility] Comment on above: Performed By: #### U MICRO, ERUR #### [facility] [address] [place] [address] Dr. Maru Rahman Clarity (U) CLEAR Normal CLEAR [facility] Comment on above: Performed By: #### U MICRO, ERUR #### [facility] [address] [address] [address] Maru Rahman Color (U) LT. YELLOW Normal YELLOW [facility] Comment on above: Performed By: #### U MICRO, ERUR #### [facility] [address] [place] [address] Dr. Maru MELGARD A micrscopic examination will be performed if indicated. Normal [facility] Comment on above: Performed By: #### U MICRO, ERUR #### [facility] [address] [address] [address] Maru Rahman Glucose Ql (U) Negative Normal NEGATIVE [facility] Comment on above: Performed By: #### U MICRO, ERUR #### [facility] [address] [place] [address] Dr. Maru Rahman Hemoglobin Ql (U) TRACE-INTACT Abnormal NEGATIVE [facility] Comment on above: Performed By: #### U MICRO, ERUR #### [facility] [address] [address] [address] Maru Rahman Ketones Ql (U) Negative Normal NEGATIVE [facility] Comment on above: Performed By: #### U MICRO, ERUR #### [facility] [address] [address] [address] Maru Rahman LEUKOCYTES Negative Normal NEGATIVE [facility] Comment on above: Performed By: #### U MICRO, ERUR #### [facility] [address] [place] [address] Dr. Maru Rahman Nitrite Ql (U) Negative Normal NEGATIVE [facility] Comment on above: Performed By: #### U MICRO, ERUR #### [facility] [address] [address] [address] Maru Rahman pH (U) 6.0 [pH] Normal 5-9 [facility] Comment on above: Performed By: #### U MICRO, ERUR #### [facility] [address] [address] [address] Maru Rahman SPEC GRAVITY <=1.005 Abnormal 1.005-<=1.025 [facility] Comment on above: Performed By: #### U MICRO, ERUR #### [facility] [address] [address] [address] Maru Rahman UA PROTEIN Negative Normal NEGATIVE/ TRACE [facility] Comment on above: Performed By: #### U MICRO, ERUR #### [facility] [address] [place] [address] Dr. Maru Rahman UR MICRO IND INDICATED Normal [facility] Comment on above: Performed By: #### U MICRO, ERUR #### [facility] [address] [address] [address] Maru Rahman Urobilinogen Qn (U) 0.2 {Namita'U}/dL Normal 0.2 - 1.0 [facility] Comment on above: Performed By: #### U MICRO, ERUR #### [facility] [address] [place] [address] Dr. Maru Rahman URINE MICROSCOPIC ONLYon BACTERIA TRACE Abnormal NONE SEEN [facility] Comment on above: Performed By: #### U MICRO, ERUR #### [facility] [address] [address] [address] Maru Rahman Bacteria identified Cx Nom (U) NOT INDICATED Normal [facility] Comment on above: Performed By: #### U MICRO, ERUR #### [facility] [address] [place] [address] Dr. Maru Rahman CAST NONE SEEN Normal NONE SEEN [facility] Comment on above: Performed By: #### U MICRO, ERUR #### [facility] [address] [place] [address] Dr. Maru Rahman Crystals LM Nom (Urine sed) NONE SEEN Normal NONE SEEN [facility] Comment on above: Performed By: #### U MICRO, ERUR #### [facility] [address] [place] [address] Dr. Maru Rahman Epithelial cells LM Ql (Urine sed) RARE Normal NONE SEEN /RARE [facility] Comment on above: Performed By: #### U MICRO, ERUR #### [facility] [address] [place] [address] Dr. Maru Rahman MUCOUS NONE SEEN Normal NONE SEEN [facility] Comment on above: Performed By: #### U MICRO, ERUR #### [facility] [address] [place] [address] Dr. Maru Rahman RBC 0-2 Normal 0-2 [facility] Comment on above: Performed By: #### U MICRO, ERUR #### [facility] [address] [place] [address] Dr. Maru Rahman WBC NONE SEEN Normal NONE SEEN [facility] Comment on above: Performed By: #### U MICRO, ERUR #### [facility] [address] [place] [address] Dr. Maru Rahman INSULIN FREE AND TOTALon Free Insulin 8.5 uU/mL Normal [facility] Comment on above: Result Comment: Refe rence Range: Pubertal Children and Adults (fasting): 0 - 17 Performed By: #### C MP #### [facility] [address] [place] [address] Dr. Maru Rahman Total Insulin 8.5 uU/mL Normal [facility] Comment on above: Result Comment: Non- Diabetic: In the absence of insulin- binding antibodies, the free and total insulin assays are equivalent. However, this assay is intended for use in diabetics with insulin autoantibody present. Measurement is performed on acid-treated samples and, therefore, the sensitivity and absolute values by this method may differ from our direct insulin ICMA. Insulin Dependent Diabetic Patients: Free Insulin levels vary depending on the capacity and affinity of circulating insulin-binding antibodies and the dose of insulin given to the patient. Total insulin levels represent free insulin and antibody bound insulin fractions. This test was developed and its performance characteristics determined by [employer] It has not been cleared or approved by the Food and Drug Administration. Performed By: #### C MP #### [facility] [address], [place] [address] Dr. Maru Rahman GLUCOSE 2HR PCon 12-17-2021 Glucose [Mass/Vol] 89 mg/dL Normal 74-106 [facility] Comment on above: Performed By: #### C MP #### [facility] [address], [place] [address] Dr. Maru Rahman MG MAMM DIAGNOSTIC 3D GAETANO CA Don 09-06-2021 MG MAMM DIAGNOSTIC 3D GAETANO CAD Patient: ARACELIS HANDY Exam Date: 09/06/2021 : 1975 Gender:F Ordering : DR SARAH CRANE D.O. Admission #: [id number] Family : Order #: [id number] CLICK HERE TO VIEW EXAM RADIOLOGY REPORT PROCEDURE: MAMMOGRAM DIAGNOSTIC 3D BILATERAL CAD COMPARISON: MG MAMM GAETANO DIAG W CAD DIG, 02/17/2014. MG MAMM SCREEN GAETANO W CAD, 02/15/2020. MG MAMM LT DIAG FU, 03/02/2020. INDICATIONS: Abnormal findings on diagnostic imaging of breast Calculator Name NCI Breast Cancer Risk Assessment Tool 5 Year Breast Cancer Risk 1.50% Lifetime Breast Cancer Risk 10.70% Personal Breast Cancer No Personal Ovarian Cancer No Treatments None Family Cancers Grandmother-paternal with breast cancer at age 60. LOCATION: [facility] BREAST COMPOSITION: Almost entirely fatty. FINDINGS: DIAGNOSTIC CATEGORY 2--BENIGN FINDING: RIGHT BREAST: No significant suspicious finding. No significant change has occurred. LEFT BREAST: No significant suspicious finding. Biopsy marker clip within the upper-outer quadrant, approximately 3 o'clock. RECOMMENDATIONS: ROUTINE MAMMOGRAM AND CLINICAL EVALUATION IN 12 MONTHS. PLEASE NOTE: A NORMAL MAMMOGRAM DOES NOT EXCLUDE THE POSSIBILITY OF BREAST CANCER. A CLINICALLY SUSPICIOUS PALPABLE LUMP SHOULD BE BIOPSIED. Dictated by: Yoan Yee M.D. on 09/06/2021 at 08:30 Approved by: Yoan Yee M.D. on 09/06/2021 at 08:34 Normal [facility] COVID Quick Testingon 2021 Result Negative [employer] [facility] [employer] Other Quick Fluon 08-19-2021 FLUAV Ab CF (S) [Titer] Negative [employer] [facility] [employer] Other FLUBV Ab CF (S) [Titer] Negative [employer] [facility] [employer] Other Vital Signs Date Time Vital Sign Value Performing Clinician Facility 12-01-2023 11:06-0400 Body height 167.64 cm [facility] 12-01-2023 11:06-0400 Body mass index (BMI) [Ratio] 27.1 kg/m2 [facility] 12-01-2023 11:06-0400 Body temperature 97.2 [degF] [facility] 12-01-2023 11:06-0400 Body weight 76.2 kg [facility] 12-01-2023 11:06-0400 Heart rate 102 /min [facility] 12-01-2023 11:06-0400 Respiratory rate 18 /min [facility] 12-01-2023 11:06-0400 SaO2% (BldA) [Mass fraction] 98 % [facility] 08-25-2022 08:10-0400 Blood Pressure Location [facility] 08-25-2022 08:10-0400 Diastolic blood pressure 83 mm[Hg] Scott PERALTA [facility] 08-25-2022 08:10-0400 Heart rate 67 /min Scott PERALTA [facility] 08-25-2022 08:10-0400 Respiratory rate 16 /min [facility] 08-25-2022 08:10-0400 Systolic blood pressure 125 mm[Hg] Scott PERALTA [facility] 08-19-2021 18:35-0400 Body height 167.64 cm Janett Cruz Other [facility] Other 08-19-2021 18:35-0400 Body mass index (BMI) [Ratio] 31.63 kg/m2 Janett Anthony Other [facility] Other 08-19-2021 18:35-0400 Body temperature 96.6 [degF] Janett Anthony Other [facility] Other 08-19-2021 18:35-0400 Body weight 88.91 kg Janett Cruz Other [facility] Other 08-19-2021 18:35-0400 SaO2% (BldA) [Mass fraction] 96 % Janett Cruz Other [employer] Other Encounters Encounter Date Encounter Type Care Provider Facility Start: 12-16-2023 End: 12-16-2023 ambulatory ABIGAIL RODRIGUEZEdgardo Not Available Start: 12-01-2023 End: 12-01-2023 ambulatory [facility] Work Phone: Start: 12-01-2023 End: 12-01-2023 Patient encounter procedure [facility] Work Phone: Start: 05-10-2023 Letter encounter Erin burgos Start: 11-17-2022 End: 11-18-2022 ambulatory Scott PERALTA Facility: [place] Start: 11-17-2022 End: 11-17-2022 Patient encounter procedure Scott PERALTA [facility] [place] Start: 10-13-2022 ambulatory Mark Martinez ty:DUANE Wong Start: 08-25-2022 End: 08-26-2022 ambulatory Scott PERALTA Facility:[facility] [place] Start: 08-25-2022 End: 08-25-2022 Patient encounter procedure Scott PERALTA [facility] [place] Start: 08-21-2022 ambulatory Mark EL Facility :[facility] Start: 08-12-2022 Letter encounter Erin burgos Start: 07-18-2022 End: 07-18-[address] SARAH CRANE Facility:[facility] Start: 07-15-[address] SARAH CRANE Fac ility:[facility] Start: 07-14-2022 End: 07-14-[address] SARAH CRANE Facility:[facility] Start: 05-27-2022 End: 05-27-[address] MARCO FERNÁNDEZ Facility:[facility] Start: 05-12-2022 Letter encounter Erin burgos Start: 04-21-2022 End: 04-22-2022 ambulatory MYESHA DAVIS Facility:[facility] Start: 12-17-2021 End: 12-18-[address] SARAH CRANE Facility:[facility] Start: 09-06-2021 End: 09-07-[address] SARAH CRANE Facility:[facility] Start: 08-19-2021 End: 08-19-2021 ambulatory Janett Cruz Other [facility] Other Start: 08-19-2021 Office outpatient vi sit 25 minutes Janett Cruz [facility] Start: 11-01-2015 End: 11-02-2015 ambulatory MEME CARVALHO Facility:[facility] Procedures Date Procedure Procedure Detail Performing Clinician H/O: hysterectomy [place] Plan of Treatment Date Care Activity Detail Author Start: 2025 Shingles (RZV) Vacci ne (1 of 2) Shingles (RZV) Vaccine (1 of 2) [facility] Start: 01-30-2023 Influenza vaccination Influenza Vacc ine (#1) [facility] Start: 03-01-2022 Influenza vaccination Influenza Vacc ine (#1) [facility] Start: 02-07-2020 Cholesterol [Mass/vo lume] in Serum or Plasma Cholesterol [facility] Start: 02-07-2020 Screening for malign ant neoplasm of colon [facility] Start: 2015 Screening for malign ant neoplasm of breast Mammography [facility] Start: 02-07-1996 Screening for malign ant neoplasm of cervix Pap Smear [facility] Start: 1993 Hepatitis C screening Hepatitis C An tibody [facility] Start: 1993 Tetanus + diphtheria + acellular pertussis vaccine (product) Tdap Booster [facility] Start: 1990 HIV screening HIV Test [facility] Start: 1975 COVID-19 Vaccine (#1) COVID-19 Vacci ne (#1) [facility] Start: 1975 Screening for malign ant neoplasm of colon Colonoscopy [facility] Payers Date Payer Category Payer Unknown [id number] 2015 Medicaid MEDICAID FFS-[id number] DITIONAL MEDICAID [id number] 2015-Present [address] [place] [address] Medicaid [id number] 2015 Blue Cross Blue Shield [id number] 2015 Unknown ANTHEM - BLUE CR OSS BLUE CROSS/HMO,PPO,POS [id number] 2015-Present [address] [place] [address] PPO [id number] 1975 Unknown [id number] 32 1975 Unknown [id number] 93 1975 Unknown [id number] [id number] 93 1975 Unknown [id number] 2.16.840.1.817011.3.579.2.5 93 1975 Unknown [id number] [id number] 93 1975 Unknown [id number] 2.16.840.1.543307.3.579.2.5 93 1975 Unknown [id number] [id number] 93 1975 Unknown [id number] 2.16.840.1.511379.3.579.2.5 93 1975 Unknown [id number] 2.16.840.1.759028.3.579.2.7 27 1975 Unknown [id number] [id number] 27 1975 Unknown [id number] [id number] 259 1959 Unknown [id number] [id number] 1959 Unknown [id number] Medicaid [facility] Medicaid [id number] Medicaid [place] Advantage [id number] Unknown [place] BC/ [id number] Social History Date Type Detail Facility Unknown if ever smoked [facility] Other Sex Assigned At [facility] Start: 10-01-2015 [facility] of tobacco use [facility] Start: 10-01-2015 End: 10-26-2015 Cigarettes smoked current (pack per day) - Reported 1 [facility] Start: 10-01-2015 Tobacco use and exposure Smokeless tobacco non-user [facility] Start: 10-26-2015 Alcohol intake 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 (finding) [facility] Start: 08-29-2013 Alcohol Comment Holidays [facility] Start: 1975 Sex Assigned At Not on file [facility] Start: 08-25-2022 End: 12-01-2023 Tobacco smoking status Ex-smoker (finding) [facility] Start: 1975 Sex Assigned At Female F [facility] Functional Status Date Assessment Result Facility 08-25-2022 Functional Status N/A [facility] Hospital Discharge instructions 08-25-2022 Note Date & Type Note Facility 08-25-2022 Hospital Discharg e instructions Patient Education 08/25/2022 08:35:07 Kidney Stones, [id number] Kidney Stones Kidney stones are rock-like masses that form inside of the kidneys. Kidneys are organs that make pee (urine). A kidney stone may move into other parts of the urinary tract, including: The tubes that connect the kidneys to the bladder (ureters). The bladder. The tube that carries urine out of the body (urethra). Kidney stones can cause very bad pain and can block the flow of pee. The stone usually leaves your body (passes) through your pee. You may need to have a doctor take out the stone. What are the causes? Kidney stones may be caused by: A condition in which certain glands make too much parathyroid hormone (primary hyperparathyroidism). A buildup of a type of crystals in the bladder made of a chemical called uric acid. The body makes uric acid when you eat certain foods. Narrowing (stricture) of one or both of the ureters. A kidney blockage that you were born with. Past surgery on the kidney or the ureters, such as gastric bypass surgery. What increases the risk? You are more likely to develop this condition if: You have had a kidney stone in the past. You have a family history of kidney stones. You do not drink enough water. You eat a diet that is high in protein, salt (sodium), or sugar. You are overweight or very overweight (obese). What are the signs or symptoms? Symptoms of a kidney stone may include: Pain in the side of the belly, right below the ribs (flank pain). Pain usually spreads (radiates) to the groin. Needing to pee often or right away (urgently). Pain when going pee (urinating). Blood in your pee (hematuria). Feeling like you may vomit (nauseous). Vomiting. Fever and chills. How is this treated? Treatment depends on the size, location, and makeup of the kidney stones. The stones will often pass out of the body through peeing. You may need to: Drink more fluid to help pass the stone. In some cases, you may be given fluids through an IV tube put into one of your veins at the hospital. Take medicine for pain. Make changes in your diet to help keep kidney stones from coming back. Sometimes, medical procedures are needed to remove a kidney stone. This may involve: A procedure to break up kidney stones using a beam of light (laser) or shock waves. Surgery to remove the kidney stones. Follow these instructions at home: Medicines Take [id number] and prescription medicines only as told by your doctor. Ask your doctor if the medicine prescribed to you requires you to avoid driving or using heavy machinery. Eating and drinking Drink enough fluid to keep your pee pale yellow. You may be told to drink at least 8 10 glasses of water each day. This will help you pass the stone. If told by your doctor, change your diet. This may include: ?Limiting how much salt you eat. ?Eating more fruits and vegetables. ?Limiting how much meat, poultry, fish, and eggs you eat. Follow instructions from your doctor about eating or drinking restrictions. General instructions Collect pee samples as told by your doctor. You may need to collect a pee sample: ?24 hours after a stone comes out. ?8 12 weeks after a stone comes out, and every 6 12 months after that. Strain your pee every time you pee (urinate), for as long as told. Use the strainer that your doctor recommends. Do not throw out the stone. Keep it so that it can be tested by your doctor. Keep all follow-up visits as told by your doctor. This is important. You may need follow-up tests. How is this prevented? To prevent another kidney stone: Drink enough fluid to keep your pee pale yellow. This is the best way to prevent kidney stones. Eat healthy foods. Avoid certain foods as told by your doctor. You may be told to eat less protein. Stay at a healthy weight. Where to find more information National Kidney Foundation (NKF): www.kidney.org [facility] ([facility]): www.urologyhealth.org Contact a doctor if: You have pain that gets worse or does not get better with medicine. Get help right away if: You have a fever or chills. You get very bad pain. You get new pain in your belly (abdomen). You pass out (faint). You cannot pee. Summary Kidney stones are rock-like masses that form inside of the kidneys. Kidney stones can cause very bad pain and can block the flow of pee. The stones will often pass out of the body through peeing. Drink enough fluid to keep your pee pale yellow. This information is not intended to replace advice given to you by your health care provider. Make sure you discuss any questions you have with your health care provider. Document Released: 11/03/2008 Document Revised: 10/04/2019 Document Reviewed: 10/04/2019 [facility] Patient Education 2020 [employer] Follow Up Care 07/22/2022 10:44:30 With:FABIAN POWELL, Scott Jones, URL Address: [facility] [employer] [address] [place], [place] [id number]- When:11/25/2022 [facility] Clinical Note 07-18-2022 Note Date & Type Note Facility 07-18-2022 Note EXAMINATION: XR KUB 1 VIEW HISTORY: Pain ; right flank pain progressing to bilateral pain COMPARISON: CT abdomen pelvis 07/14/2012, XR abdomen with PA chest 07/13/2022, XR hip left 04/21/2022 FINDINGS: KIDNEY/URETER - RIGHT: No visible renal or ureteral calcifications. KIDNEY/URETER - LEFT: No visible renal or ureteral calcifications. PELVIS: No visible ureteral stones. Stable, chronic pelvic calcifications are patent with phleboliths. BOWEL: No abnormal dilation or deviation. Moderate stool burden. BONES: No acute abnormality. OTHER: Negative. No abnormal gaseous collections. IMPRESSION: 1. No visible urinary tract calculi. 2. Moderate stool burden. No bowel obstruction. Electronically authenticated by: YOAN YEE Date: 2022-07-18 11:54 [facility] Evaluation note 08-19-2021 Note Date & Type Note Facility 08-19-2021 Evaluation note Encounter Date Diagnosis Assessment Notes Jul, Acute sinusitis, unspecified (ICD-10 - J01.90) Advised patient that rapid COVID antigen and Influenza A/B test were negative today in office. Discussed diagnosis with patient. Advised that viral syndromes last 7-10 days, antibiotics are not indicated for viruses. Will treat as viral at this time based on physical exam and duration of symptoms. May use rx of Bromfed and Flonase to use as directed,. Tylenol/Motrin as directed for aches/fever. Supportive care as directed, push fluids and rest, throat lozenges, nasal saline spray as directed, cool mist humidification. Follow up with PCP if symptoms persist. Immediate eval for SOB, wheezing, difficulty breathing, chest pain, headache, neck pain/stiffness, light sensitivity, abdominal pain, N/V/D, rash, or other new or concerning symptoms. Patient verbalizes understanding and is agreeable to treatment plan Jul, Other viral agents as the cause of diseases classified elsewhere (ICD-10 - B97.89) Jul, Headache (ICD-10 - R51.9) [facility] Other Evaluation + Plan note Note Date & Type Note Facility Evaluation + Plan note Future Appointments Appointment Date:11/17/2022 08:30:00 AM Scheduled Provider:Scott PERALTA MD Location:[facility] Appointment Type:URO Office Visit [facility] Evaluation note Note Date & Type Note Facility Evaluation note No assessment information [facility] Work Phone: History general Narrative - Reported Note Date & Type Note Facility History general Narrative - Reported Type Medical History Hypothyroidism Surgical History thyroidectomy Surgical History TMJ surgery 09/12 Surgical History hysterectomy Hospitalization History see surgical hx [facility] Other Hospital course Narrative Note Date & Type Note Facility Hospital course Narrative No data available for this section [facility] Hospital Discharge instructions Note Date & Type Note Facility Hospital Discharge instructions No data available for this section [facility] Progress note Note Date & Type Note Facility Progress note No data available for this section [facility] [place] Summary Purpose Family History No Family History Records Found Relationship Condition Age at Onset Recorded Date/T aly father Unknown Advance Directives No Advanced Directives Records Found Advance Directive Response Recorded Date/ Time Advance Directives No November 30 10:54am Chief Complaint and Reason for Visit Chief Complaint Ear pain, nausea, di zziness Additional Source Comments INFORMATION SOURCE (unrecogn ized section and content) DATE CREATED AUTHOR 07/19/2021 [facility] [email or web address] [facility] DATE CREATED AUTHOR AUTHOR'S ORGANIZ ATION 08/31/2022 [facility] DATE CREATED AUTHOR AUTHOR'S ORGANIZ ATION 09/04/2022 [facility] DATE CREATED AUTHOR AUTHOR'S ORGANIZ ATION 11/18/2022 [facility] DATE CREATED AUTHOR AUTHOR'S ORGANIZ ATION 12/20/2023 [facility] EPIC REASON FOR VISIT (unrecogniz ed section and content) H/A, BRIGHT GREEN MUCOUS, SO RE THROAT, EAR PAIN Patient Care team informatio n (unrecognized section and content) Team Status: Active Member Role Status Dates NON STAFF Primary Care Provider Active Team Status: Inactive Member Role Status Dates Renetta Keita , CRIME LABORATORY ANALYST Attending Provider Active Start: December 01, 2023 End: December 01, 2023 NON STAFF Primary Care Provider Active Start: December 01, 2023 End: December 01, 2023 Goals (unrecognized section and content) Goals may be documented in a n alternate section FOR RECORDS PERTAINING TO PATIENTS WHO ARE OR HAVE BEEN ENROLLED IN A CHEMICAL DEPENDENCY/SUBSTANCEABUSE PROGRAM, SOME INFORMATION MAY BE OMITTED. This clinical summary was aggregated from multiple sources. Caution should be exercised in using it in the provision of clinical care. This summary normalizes information from multiple sources, and as a consequence, information in this document may materially change the coding, format and clinical context of patient data. In addition, data may be omitted in some cases. CLINICAL DECISIONS SHOULD BE BASED ON THE PRIMARY CLINICAL RECORDS. [facility] [employer] [facility]. provides no warranty or guarantee of the accuracy or completeness of information in this document.
--- NOTE | 2023-12-30 15:20 | ED.EAR1 ---
HPI - Ear Problem General Chief complaint: Ear Stated complaint: Hearing Disturbance Time Seen by Provider: 12/30/23 15:05 Source: patient Mode of arrival: walk-in Limitations: no limitations History of Present Illness HPI Narrative: Patient is a 48-year-old female who presents to the emergency department for worsening symptoms present over the last year. Patient states she has been having pain, pressure in the left ear associated with headache and dizziness. She has been seen by her primary care provider, a local ear nose and throat physician as well as multiple visits to urgent care for the symptoms. She states she was told by ENT that he believes she has a benign tumor in her left ear but they need to rule out M?ni?re's disease before she can have additional testing. She is tearful at initial interview, she states her symptoms have gotten to the point where she is having trouble driving and working. She is not concerned for . She has had no recent upper respiratory symptoms. She was placed on prednisone by urgent care several weeks ago and states that her PCP has given her Zofran in the past. She has not had any recent antibiotics. Related Data Home Medications ?Medication ?Instructions ?Recorded ?Confirmed famotidine 40 mg tablet 40 mg PO DAILY 12/30/23 12/30/23 ibuprofen 800 mg tablet 800 mg PO Q12H 12/30/23 12/30/23 levothyroxine 137 mcg tablet 137 mcg PO DAILY 12/30/23 12/30/23 Previous Rx's ?Medication ?Instructions ?Recorded ketorolac 10 mg tablet 10 mg PO TID PRN pain #10 tabs 12/30/23 meclizine 25 mg chewable tablet 25 mg PO QID PRN dizziness #12 tabs 12/30/23 (Antivert) ondansetron 4 mg disintegrating 4 mg PO Q6H PRN nausea and 12/30/23 tablet vomiting #12 tabs Allergies Allergy/AdvReac Type Severity Reaction Status Date / Time hydrocodone [From Vicodin] AdvReac Mild itching Verified 12/30/23 15:10 Review of Systems ROS Constitutional Denies: fever or chills Eyes Denies: change in vision Ears, nose, mouth, and throat Reports: ear pain, change in hearing and vertigo; Denies: throat pain, ear discharge or nasal congestion Cardiovascular Denies: chest pain Respiratory Denies: shortness of breath Gastrointestinal Reports: nausea; Denies: vomiting or diarrhea Integumentary/Breast Denies: rash Neurological Reports: headache, dizziness and vertigo; Denies: numbness in extremities or weakness in extremities Hematologic/Lymphatic Denies: easy bruising or easy bleeding Exam Narrative Exam Narrative: Gen.: Awake, alert, in no distress Head: Normocephalic, atraumatic ENT: Moist mucous membranes, bilateral TMs clear Respiratory: No respiratory distress Extremities: Moves extremities equally Psych: Normal mood and affect Neuro: No focal neuro deficit Skin: Warm, dry, intact Constitutional Vital Signs, click to edit/add: Last Vital Signs Temp 99.0 F 12/30/23 15:06 Pulse 80 12/30/23 15:06 Resp 18 12/30/23 15:06 BP 162/91 H 12/30/23 15:06 Pulse Ox 98 12/30/23 15:06 O2 Del Method Room Air 12/30/23 15:06 Course Vital Signs Vital signs: Vital Signs Temperature 99.0 F 12/30/23 15:06 Pulse Rate 80 12/30/23 15:06 Respiratory Rate 18 12/30/23 15:06 Blood Pressure 162/91 H 12/30/23 15:06 Pulse Oximetry 98 12/30/23 15:06 Oxygen Delivery Method Room Air 12/30/23 15:06 Temperature 99.0 F 12/30/23 15:06 Pulse Rate 80 12/30/23 15:06 Respiratory Rate 18 12/30/23 15:06 Blood Pressure 162/91 H 12/30/23 15:06 Pulse Oximetry 98 12/30/23 15:06 Oxygen Delivery Method Room Air 12/30/23 15:06 Medical Decision Making MDM Narrative Medical decision making narrative: Patient symptoms have been ongoing for 1 year, consistent with vertigo and inner ear dysfunction. CT of the brain and CT of the auditory canals performed in the emergency department with no evidence of acute process. Patient will be placed on Antivert, Zofran, discharged home to follow-up with PCP and ENT and return to the ER if symptoms change or worsen. SUPERVISED APC VISIT, PHYSICIAN ATTESTATION: Based on the medical record the care appears appropriate. ? Medical Records Medical records reviewed: Yes I reviewed the patient's medical records Imaging Data CT scan - head: Attestation: I have reviewed the pertinent imaging results. Radiologist's impression: ITS Impressions Head CT 12/30/23 15:11 IMPRESSION: No acute intracranial process. Electronically authenticated by: YOLIS EDMONDSON Date: 12/30/2023 16:[address] 12/30/23 15:17 IMPRESSION: Normal CT of the temporal bones. Electronically authenticated by: YOLIS EDMONDSON Date: 12/30/2023 16:15 Discharge Plan Discharge Stand Alone Forms: Portal Instructions Chief Complaint: Ear Clinical Impression: Dizziness, Acute pain of left ear Patient Disposition: Home, Self-Care Time of Disposition Decision: 16:25 Condition: Good Prescriptions / Home Meds: New ketorolac 10 mg tablet 10 mg PO TID PRN (Reason: pain) Qty: 10 0RF ondansetron 4 mg tablet,disintegrating 4 mg PO Q6H PRN (Reason: nausea and vomiting) Qty: 12 0RF meclizine [Antivert] 25 mg tablet,chewable 25 mg PO QID PRN (Reason: dizziness) Qty: 12 0RF No Action levothyroxine 137 mcg tablet 137 mcg PO DAILY ibuprofen 800 mg tablet 800 mg PO Q12H famotidine 40 mg tablet 40 mg PO DAILY Print Language: Malay Instructions: Dizziness (ED) Referrals: SARAH CRANE DO [Primary Care Provider] - 1 week Anai Driver MD [Physician] - As soon as possible
[2023-12-30 16:38] VITALS: BP 117/85; PULSE 88; O2SAT 99
== END 2023-12-30 16:39 | disposition home or self-care (01) ==
PROVIDERS: Emergency Provider Student in an Organized Health Care Education/Training Program; PCP Family Medicine
DX: R42 Dizziness and giddiness (principal); H92.02 Otalgia, left ear
CPT/HCPCS: 70450; 70480; 99284